=== PATIENT | female | born 1995 ===

== ENCOUNTER 2017-03-21 18:56 | Emergency (ER) | payer OTHER ==
[2017-03-21 19:22] VITALS: BMI 34.1
--- NOTE | 2017-03-21 19:26 | OBHP ---
Datetime: 03/21/2017 19:23 IP Adm Impression: , intrauterine Admit Comment, IP Provider: at 31weeks came with c/o abdominal cramping started last night, was bad, now better, no vb, lof,=fm. no dysria obhx primi pmh denies me pnv all nkda psh denies soch de ve closed a/p at 31weeks r/o pt ctxs, r/o uti ua cont glenys and efm cont close observation Pelvic Type - PN: Adequate Extremities - PN: Normal Abdomen - PN: Normal Back - PN: Normal Breast - PN: Normal Lungs - PN: Normal Heart - PN: Normal Thyroid - PN: Normal Neurologic - PN: Normal HEENT - PN: Normal General - PN: Normal FHR - Baseline A Provider: 150 Contraction Comments Provider: none Comments, ACOG Physical Exam: gravid,non tender ext no edema,no calf ten EGA AdmitDate IP: 31.4 Vital Signs Provider: Reviewed; Within Normal Limits IP Chief Complaint: Maternal discomfort NICHD Variability Prov Fetus A: Moderate 6-25bpm NICHD Accel Fetus A IP Provider: 10X10 FHR Category Provider Fetus A: Category I Dilatation, Provider: 0 Effacement, Provider: 0 Station, Provider: -3 Genitourinary Exam: Normal DTRs - PN: Normal
[2017-03-21 20:00] LABS: RBC URINE 15 /hpf (0-3); TRANSITIONAL EPITHIAL < 1 /hpf (0-3); URINE BACTERIA OCC (<OCC); URINE BILIRUBIN NEGATIVE (NEGATIVE); URINE COLOR Yellow (YELLOW); URINE GLUCOSE (UA) NORMAL (Normal); URINE KETONE NEGATIVE (NEGATIVE); URINE PROTEIN NEGATIVE (NEGATIVE); URINE UROBILINOGEN NORMAL mg/dL (0.2-1.0); WBC URINE 12 /hpf (0-5)
[2017-03-21 20:01] LABS: URINE LEUKOCYTE ESTERASE 1+ Leu/uL (Negative)
[2017-03-21 20:02] LABS: URINE BLOOD 2+ (NEGATIVE)
--- NOTE | 2017-03-21 20:07 | OBHP ---
Datetime: 03/21/2017 20:04 Admit Comment, IP Provider: pt was seen at bed side. feels ok ua +blood,+le plan dc home macrobid 100 mg bid po hyration f/u in clinic as schuled FHR - Baseline A Provider: 130 NICHD Variability Prov Fetus A: Moderate 6-25bpm NICHD Accel Fetus A IP Provider: 10X10 FHR Category Provider Fetus A: Category I Datetime: 03/21/2017 19:23 EGA AdmitDate IP: 31.4
--- NOTE | 2017-03-21 20:09 | OBDCSUM ---
Datetime: 03/21/2017 20:06 Discharged to, Provider: Home Follow up at, Provider: as schuled Follow up in weeks, Provider: clinic Discharge Comment, Provider: dc home macrobid 100 mg bid po hyration f/u in clinic as schuled Discharge Diagnosis Prov Other: 31weeks nst uti
== END 2017-03-21 20:06 | disposition home or self-care (01) ==
LOC: C.EROB 18:56
DX: O75.89 Other specified complications of labor and delivery (principal); Z3A.31 31 weeks gestation of pregnancy

== ENCOUNTER 2018-02-15 21:46 | Emergency (ER) | payer MEDICAID, OTHER ==
[2018-02-15 21:46] VITALS: BMI 34.1
[2018-02-15 22:26] VITALS: BP 128/95; PULSE 84; TEMP 98.2; O2SAT 98
[2018-02-15 22:36] LABS: HCG,QUALITATIVE URINE NEGATIVE (NEGATIVE)
[2018-02-15 22:38] LABS: SQUAMOUS EPITHIAL 25 /hpf (0-5); URINE BACTERIA FEW (<OCC); URINE BILIRUBIN NEGATIVE (NEGATIVE); URINE BLOOD NEGATIVE (NEGATIVE); URINE CLARITY Hazy (Clear); URINE COLOR Yellow (YELLOW); URINE GLUCOSE (UA) NORMAL (Normal); URINE LEUKOCYTE ESTERASE 2+ Leu/uL (Negative); URINE PROTEIN NEGATIVE (NEGATIVE); URINE UROBILINOGEN NORMAL mg/dL (0.2-1.0)
--- NOTE | 2018-02-15 22:50 | C.PDOC ---
History Of Present Illness 22 year old female presents to the ED for evaluation of foul-smelling vaginal discharge and hematochezia. Patient reports a history of constipation and states she has been seeing blood in her stool. Patient denies fever, chills, nausea, vomiting, and abdominal pain. Time Seen by Provider: 02/15/18 22:23 Chief Complaint (Nursing): Female Genitourinary History Per: Patient History/Exam Limitations: no limitations Onset/Duration Of Symptoms: Hrs Current Symptoms Are (Timing): Still Present Associated Symptoms: denies: Fever, Chills, Nausea, Vomiting Additional History Per: Patient Abnormal Vaginal Bleeding: No Past Medical History Reviewed: Historical Data, Nursing Documentation, Vital Signs Vital Signs: Last Vital Signs Temp 98.2 F 02/15/18 22:14 Pulse 84 02/15/18 22:14 Resp 18 02/15/18 23:02 BP 128/95 H 02/15/18 22:14 Pulse Ox 98 02/16/18 01:24 - Medical History PMH: No Chronic Diseases Surgical History: No Surg Hx Family History: States: Unknown Family Hx - Social History Hx Alcohol Use: No Hx Substance Use: No - Immunization History Hx Tetanus Toxoid Vaccination: No Hx Pneumococcal Vaccination: No Review Of Systems Constitutional: Negative for: Fever, Chills Gastrointestinal: Positive for: Hematochezia. Negative for: Nausea, Vomiting, Abdominal Pain Genitourinary: Positive for: Vaginal Discharge Physical Exam - Physical Exam Appears: Non-toxic, No Acute Distress Skin: Normal Color, Warm, Dry Head: Atraumatic, Normacephalic Eye(s): bilateral: Normal Inspection Oral Mucosa: Moist Neck: Supple Chest: Symmetrical, No Deformity, No Tenderness Cardiovascular: Rhythm Regular, No Murmur Respiratory: Normal Breath Sounds, No Rales, No Rhonchi, No Wheezing Gastrointestinal/Abdominal: Soft, No Tenderness, No Guarding, No Rebound Rectal: Other (small anal fissure and skin tag noted around 6 o'clock position ) Pelvic: Vaginal Discharge (thin, white. fishy odor noted ) Extremity: Normal ROM, Capillary Refill (less than 2 seconds ) Neurological/Psych: Oriented x3, Normal Speech, Normal Cognition ED Course And Treatment O2 Sat by Pulse Oximetry: 98 (on RA) Pulse Ox Interpretation: Normal Progress Note: Urinalysis ordered and reviewed. On reassessment, patient is resting comfortably, showing no signs of distress and is stable for discharge. Patient is advised to f/u with her PMD within 1-2 days for further evaluation and/or return to the ED if symptoms persist or worsen. Disposition Counseled Patient/Family Regarding: Diagnosis, Need For Followup, Rx Given - Disposition Referrals: [facility] [Outside] Disposition: HOME/ ROUTINE Disposition Time: 22:48 Condition: STABLE Additional Instructions: Increase PO fluids Take medications as directed Return to ER if worse Prescriptions: Docusate Sodium [Colace] 100 mg PO BID #30 capsule Hydrocortisone [Anusol-HC] 25 mg RC BID #20 sup Ibuprofen [Motrin] 600 mg PO Q6H #24 tab metroNIDAZOLE [Flagyl] 500 mg PO BID #14 tab Nitrofurantoin Macrocrystals [Macrobid] 1 cap PO BID #14 cap Instructions: High Fiber Diet, Bacterial Vaginosis (DC) Forms: [employer] ([place]) - Clinical Impression Clinical Impression: Bacterial vaginosis, UTI (urinary tract infection), Anal fissure - PA / [employer]BAC[employer] BU[employer]ER / Resident Statement MD/DO has reviewed & agrees with the documentation as recorded. - Scribe Statement The provider has reviewed the documentation as recorded by the Scribe (Teodora Ivan) All medical record entries made by the Scribe were at my direction and personally dictated by me. I have reviewed the chart and agree that the record accurately reflects my personal performance of the history, physical exam, medical decision making, and the department course for this patient. I have also personally directed, reviewed, and agree with the discharge instructions and disposition.
[2018-02-15 23:12] VITALS: RESP 18
== END 2018-02-15 23:02 | disposition home or self-care (01) ==
LOC: C.ER 21:46
DX: N39.0 Urinary tract infection, site not specified (principal); N76.0 Acute vaginitis; K60.2 Anal fissure, unspecified